=== PATIENT | male | born 1970 | race Caucasian/White ===

== ENCOUNTER 2022-02-10 23:04 | Emergency (ER) | payer OTHER ==
[~2022-02-10] VITALS: Ht 180.3 cm; Wt 91.3 kg
[2022-02-11 04:16] LABS: Hepatitis B Surface Antibody Negative (Negative)
[2022-02-11] MEDS ORDERED: EMTRTAB7 PO (04:27)
[2022-02-11] MEDS ORDERED: RALT400T PO (04:27)
[2022-02-11 04:56] VITALS: BP 165/101
== END 2022-02-11 05:03 | disposition home or self-care (01) ==
LOC: ER 23:04
DX: S60.512A Abrasion of left hand, initial encounter (principal); I10 Essential (primary) hypertension; W51.XXXA Accidental striking against or bumped into by another person, initial encounter; Y93.89 Activity, other specified; Y92.89 Other specified places as the place of occurrence of the external cause; Y99.8 Other external cause status
CPT/HCPCS: 36415; 86703; 86706; 86803; 87340